=== PATIENT | female | born 1945 | race Caucasian/White ===

== ENCOUNTER 2022-11-26 14:39 | Emergency (ER) | payer MEDICARE, SELFPAY ==
[2022-11-26] VITALS (10 sets, daily range): BP systolic 118–160; BP diastolic 52–78; PULSE 64–72; RESP 18; TEMP 37.3; O2SAT 92–95; BMI 33.8
--- NOTE | 2022-11-26 15:22 | ED.SYNCOPE ---
HPI - Syncope General Chief Complaint: Syncope/Fainted Stated Complaint: Passed out, still lightheaded Time Seen by Provider: 11/26/22 14:55 History of Present Illness HPI narrative: This 77-year-old female comes in for evaluation after a syncopal event that occurred just prior to arrival. She states that she was stooped over then stood up and walked up a hill and when she got to the top of the hill she began to feel lightheaded. As she was planning to get down to prevent falling she did have brief loss of consciousness. She does not report any injury from this event. She did measure her blood pressure soon after this and noted it was 104/49. She states that she feels back to normal now. She does take antihypertensive medications. There is been no recent change in the dosing of these medicines. She did not have any chest pain, nausea, vomiting, or diaphoresis. She states that she has been tired over the past few weeks and has not slept as well at night for various reasons. Related Data Home Medications Medication Instructions Recorded Confirmed atenolol 50 mg-chlorthalidone 25 tab PO 11/26/22 mg tablet atorvastatin 10 mg tablet 10 mg PO DAILY 11/26/22 11/26/22 potassium chloride 20 mEq 20 meq PO DAILY 11/26/22 11/26/22 tablet,extended release(part/cryst) Allergies Allergy/AdvReac Type Severity Reaction Status Date / Time No Known Drug Allergies Allergy Verified 11/26/22 14:45 Review of Systems Status of ROS: Reports: 10 or more systems reviewed and unremarkable except as noted in History and below Narrative: Constitutional: No fevers, no weight gain or loss. Eyes: No discharge. No vision changes. HENT: No congestion, no sore throat, no ear pain. Cardiovascular: No chest pain, no palpitations. Respiratory: No shortness of breath, no wheezes, no cough. Gastrointestinal: No abdominal pain, no vomiting, no diarrhea. Genitourinary: No dysuria, no hematuria. Musculoskeletal: Normal range of motion. Skin: No rashes, no pruritis. Neurological: No weakness, sensory change, speech change. Lightheadedness episode with brief syncope as described above. Endo/Heme/Allergies: No bruising or bleeding. No polydipsia. Pysch: no suicidality, no anxiety, no insomnia. All other systems reviewed and are negative. Exam Narrative: Exam Narrative: Constitutional: Well-developed, well-nourished, no acute distress. HEENT: Normocephalic, atraumatic. Neck: Normal range of motion. Nontender. Supple. Heart: Regular. No murmurs. Normal rate. Intact distal pulses. Lungs: Clear to auscultation. No chest discomfort. No wheezes, rhonchi, or rales. Abdomen: Normal bowel sounds. Nontender. No rebound tenderness. Genitalia: Deferred. Back: No midline tenderness. Normal range of motion. Extremities: Normal range of motion. No injury. No pedal edema. Skin: Intact. No rash. Warm. No erythema or pallor. Neurologic: No altered sensation. No weakness. Alert and oriented. Psychiatric: No suicidality. No anxiety or depression. No insomnia. Nursing notes and vitals signs are reviewed. Const: Vital Signs, click to edit/add: Vital Signs - 24 hr 11/26/22 14:45 11/26/22 15:20 11/26/22 15:30 Temperature 99.2 F Pulse Rate 67 64 Pulse Rate [Right Pulse Oximeter] 72 Respiratory Rate 18 Blood Pressure Blood Pressure [Ri ght Upper Arm] 160/78 H Pulse Oximetry 95 95 92 Oxygen Delivery Me thod Room Air 11/26/22 15:33 11/26/22 15:59 11/26/22 16:00 Temperature Pulse Rate 64 64 Pulse Rate [Right Pulse Oximeter] Respiratory Rate Blood Pressure 136/73 Blood Pressure [Ri ght Upper Arm] Pulse Oximetry 93 94 Oxygen Delivery Me thod 11/26/22 16:03 11/26/22 16:15 Temperature Pulse Rate 64 66 Pulse Rate [Right Pulse Oximeter] Respiratory Rate Blood Pressure 118/52 L Blood Pressure [Ri ght Upper Arm] Pulse Oximetry 93 95 Oxygen Delivery Me thod Course Vital Signs Vital signs: Initial Vital Signs Temperature 99.2 F 11/26/22 14:45 Temperature Source Temporal Artery Scan 11/26/22 14:45 Pulse Rate 72 11/26/22 14:45 Respiratory Rate 18 11/26/22 14:45 Blood Pressure 160/78 H 11/26/22 14:45 Blood Pressure Mean 105 11/26/22 14:45 Blood Pressure Position Sitting 11/26/22 14:45 Pulse Oximetry 95 11/26/22 14:45 Oxygen Delivery Method Room Air 11/26/22 14:45 Vital Signs Temperature 99.2 F 11/26/22 14:45 Pulse Rate 72 11/26/22 14:45 Respiratory Rate 18 11/26/22 14:45 Blood Pressure 160/78 H 11/26/22 14:45 Pulse Oximetry 95 11/26/22 14:45 Oxygen Delivery Method Room Air 11/26/22 14:45 Temperature 99.2 F 11/26/22 14:45 Pulse Rate 66 11/26/22 16:15 Respiratory Rate 18 11/26/22 14:45 Blood Pressure 118/52 L 11/26/22 16:03 Pulse Oximetry 95 11/26/22 16:15 Oxygen Delivery Method Room Air 11/26/22 14:45 MDM - Syncope MDM Narrative Medical decision making narrative: This patient came in for evaluation of a syncopal episode that occurred just prior to arrival. She continues to feel completely normal at this time and throughout her stay here. Her vital signs also are in normal range. EKG shows normal findings as to lab results. Her troponin returns at 0. She is able to get up and ambulate and is not having any symptoms. I did describe various causes that can contribute to such symptoms. She is on 2 antihypertensive medications. I did advise her to check her blood pressures regularly and follow-up with her primary physician. Lab Data Labs: Lab Results 11/26/22 Range/Units 15:39 WBC 10.52 (4.50-11.00) K/uL RBC 4.58 (4.00-5.20) m/uL Hgb 13.7 (12.0-16.0) gm/dL Hct 40.5 (33.0-51.0) % MCV 88 (80-100) fL MCH 30 (26-34) pg MCHC 34 (32-36) gm/dL RDW Coeff of Koffi 12.5 (11.5-15.5) % Plt Count 276 (140-440) K/uL Neut % (Auto) 71.0 (42.0-72.0) % Lymph % (Auto) 19.3 L (20-44) % Ralls % (Auto) 7.7 (0.0-11.0) % Eos % (Auto) 1.4 (0.0-7.0) % Baso % (Auto) 0.3 (0.0-3.0) % Neut # (Auto) 7.47 H (1.7-7.0) K/uL Lymph # (Auto) 2.00 (0.90-2.90) K/uL Ralls # (Auto) 0.80 (0.00-0.90) K/UL Eos # (Auto) 0.15 (0.00-0.50) K/uL Baso # (Auto) 0.03 (0.00-0.30) K/uL Sodium 140 (135-149) mmol/L Potassium 3.9 (3.6-5.1) mmol/L Chloride 105 (96-114) mmol/L Carbon Dioxide 26 (20-32) mmol/L BUN 19 (7-30) mg/dL Creatinine 0.7 (0.5-1.5) mg/dL Estimated Creat Clear 40.68 Estimated GFR 89 ml/min Glucose 114 (60-115) mg/dL Calcium 9.2 (8.4-10.6) mg/dL POC Troponin I 0.00 L (0.01-0.04) ng/ml ECG Data Attestation: I personally reviewed and interpreted this ECG as follows: Interpretation: Normal sinus rhythm. Rate is 69 beats per minute. There are no ST or T-wave abnormalities. Discharge Plan Discharge Clinical Impression: Vasovagal syncope Patient Disposition: Home, Self-Care Condition: Improved Additional Instructions: Continue current plans. Record blood pressures and follow-up with primary physician. Return if symptoms are recurrent or worsening. Prescriptions: No Action atorvastatin 10 mg tablet 10 mg PO DAILY atenolol-chlorthalidone 50-25 mg tablet PO potassium chloride 20 mEq tablet,ER particles/crystals 20 meq PO DAILY Follow Up/Referrals: Kevin Spencer MD [Primary Care Provider] - Stand Alone Forms: [facility] Info Instructions
[2022-11-26 15:48] LABS: Basophils Absolute Auto 0.03 K/uL (0.00-0.30); Basophils Percent Auto 0.3 % (0.0-3.0); Eosinophils Absolute Auto 0.15 K/uL (0.00-0.50); Eosinophils Percent Auto 1.4 % (0.0-7.0); Hematocrit 40.5 % (33.0-51.0); Hemoglobin* 13.7 gm/dL (12.0-16.0); Immature Granulocytes Abs Auto 0.03 K/uL (0.00-0.30); Immature Granulocytes Pct Auto 0.3 %; Lymphocytes Percent Auto 19.3 % (20-44); Mean Corpuscular HGB Conc 34 gm/dL (32-36); Mean Corpuscular Hemoglobin 30 pg (26-34); Mean Corpuscular Volume 88 fL (80-100); Monocytes Percent Auto 7.7 % (0.0-11.0); Neutrophils Absolute Auto 7.47 K/uL (1.7-7.0); Platelet Count* 276 K/uL (140-440); RDW Coefficient of Variation % 12.5 % (11.5-15.5); Red Blood Count 4.58 m/uL (4.00-5.20); White Blood Count* 10.52 K/uL (4.50-11.00)
[2022-11-26 15:52] LABS: Slide Review Reflex No
[2022-11-26 16:04] LABS: Chloride* 105 mmol/L (96-114)
[2022-11-26 16:05] LABS: Potassium* 3.9 mmol/L (3.6-5.1); Sodium* 140 mmol/L (135-149)
[2022-11-26 16:07] LABS: Creatinine* 0.7 mg/dL (0.5-1.5); Est. Creatinine Clearance* 40.68; Estimated Glomerular Filt Rate 89 ml/min
[2022-11-26 16:08] LABS: Blood Urea Nitrogen* 19 mg/dL (7-30); Calcium* 9.2 mg/dL (8.4-10.6); Carbon Dioxide* 26 mmol/L (20-32); Glucose* 114 mg/dL (60-115)
== END 2022-11-26 16:57 | disposition home or self-care (01) ==
PROVIDERS: Emergency Provider Emergency Medicine Emergency Medical Services; PCP Family Medicine
DX: R55 Syncope and collapse (principal)
CPT/HCPCS: 36415; 80048; 84484; 85025; 93005; 99284

== ENCOUNTER 2023-05-16 11:36 | Emergency (ER) | payer MEDICARE, SELFPAY ==
[2023-05-16] VITALS (10 sets, daily range): BP systolic 134–172; BP diastolic 57–101; PULSE 35–42; RESP 12–30; TEMP 36.6; O2SAT 90–96; BMI 33.3
--- NOTE | 2023-05-16 14:56 | ED.GENADULT ---
HPI - General Adult General Time Seen by Provider: 14:56 Date Seen: 05/16/23 Chief complaint: Arrhythmia/Palpitations Stated complaint: Low heartrate Time Seen by Provider: 05/16/23 14:44 Source: patient and RN notes reviewed Mode of arrival: ambulatory Limitations: no limitations History of Present Illness HPI narrative: Patient is a 77-year-old female sent in from [facility] where she was supposed to have a colonoscopy today. She was found have a low heart rate in the 40s. She is on atenolol, chlorthalidone, takes it at night. She is having no chest pain, no shortness of breath, no exercise intolerance, no edema. She did not take her potassium due to not eating, normally takes it with food. She does water aerobics 3 times a week. She is not known her heart rate to be low. She is not symptomatic with this. She is just hungry after having completed her colonoscopy prep overnight. Related Data Home Medications Medication Instructions Recorded Confirmed atenolol 50 mg-chlorthalidone 25 tab PO 11/26/22 mg tablet atorvastatin 10 mg tablet 10 mg PO DAILY 11/26/22 11/26/22 potassium chloride 20 mEq 20 meq PO DAILY 11/26/22 11/26/22 tablet,extended release(part/cryst) Allergies Allergy/AdvReac Type Severity Reaction Status Date / Time No Known Drug Allergies Allergy Verified 11/26/22 14:45 Review of Systems Status of ROS: Reports: 6 or more systems reviewed and unremarkable except as noted in History and below PFSH PFSH Social History Smoking Status: Never smoker Do you use any of these nicotine containing products: None How often do you have a drink containing alcohol: never AUDIT-C Alcohol total score: 0 Non-prescribed substance use: denies use Exam Const: Vital Signs, click to edit/add: Vital Signs - 24 hr 05/16/23 11:45 05/16/23 15:09 Temperature 97.8 F Pulse Rate [Right Pulse Oximeter] 42 L Respiratory Rate 18 Blood Pressure [Ri ght Upper Arm] 172/70 H Pulse Oximetry 96 94 Oxygen Delivery Me thod Room Air This is a 77-year-old female that is alert, interactive, no apparent distress. Sclera clear, face atraumatic, speech normal. Neck is supple, no jugular venous distension, no cervical adenopathy, no thyromegaly masses or nodules. She sits up easily, lungs are clear, no wheezing or crackles, no tachypnea. CV slow but regular, no murmur heard, normal S1 and S2 noted. Abdomen is soft, no rebound, no organomegaly, nontender, no masses. She has no lower extremity edema. Patient ambulatory in the ED of her own accord. Documenting provider has reviewed patient's vital signs: yes Course Course ED Course: Reviewed with patient that this is likely resulting from her atenolol. It very well may be that she is developing underlying sinus conduction system disease. We will check appropriate labs including troponin, TSH and electrolytes. Will get a portable chest x-ray. Will talk to Cardiology regarding this case. It may be that she is recommended to stay in the hospital for observation. Will have her on cardiac monitoring, pulse oximetry and get an EKG. Consultations Consultation #1: Spoke with [facility], Dr. Qiu. Sent him the EKG, he agrees it is a Mobitz 2. He states she needs to come for pacemaker with this heart block. Time: 15:50 Vital Signs Vital signs: Initial Vital Signs Temperature 97.8 F 05/16/23 11:45 Temperature Source Temporal Artery Scan 05/16/23 11:45 Pulse Rate 42 L 05/16/23 11:45 Respiratory Rate 18 05/16/23 11:45 Blood Pressure 172/70 H 05/16/23 11:45 Blood Pressure Mean 104 05/16/23 11:45 Pulse Oximetry 96 05/16/23 11:45 Oxygen Delivery Method Room Air 05/16/23 11:45 Vital Signs Temperature 97.8 F 05/16/23 11:45 Pulse Rate 42 L 05/16/23 11:45 Respiratory Rate 18 05/16/23 11:45 Blood Pressure 172/70 H 05/16/23 11:45 Pulse Oximetry 96 05/16/23 11:45 Oxygen Delivery Method Room Air 05/16/23 11:45 Temperature 97.8 F 05/16/23 11:45 Pulse Rate 35 L 05/16/23 18:30 Respiratory Rate 29 H 05/16/23 18:30 Blood Pressure 149/73 H 05/16/23 18:30 Pulse Oximetry 94 05/16/23 18:30 Oxygen Delivery Method Room Air 05/16/23 18:30 Medical Decision Making Lab Data Lab results reviewed: Yes I reviewed the patient's lab results Labs: Lab Results 05/16/23 Range/Units 15:15 WBC 10.47 (4.50-11.00) K/uL RBC 5.00 (4.00-5.20) m/uL Hgb 14.6 (12.0-16.0) gm/dL Hct 43.8 (33.0-51.0) % MCV 88 (80-100) fL MCH 29 (26-34) pg MCHC 33 (32-36) gm/dL RDW Coeff of Koffi 12.3 (11.5-15.5) % Plt Count 265 (140-440) K/uL Neut % (Auto) 65.4 (42.0-72.0) % Lymph % (Auto) 24.3 (20-44) % Pope % (Auto) 8.7 (0.0-11.0) % Eos % (Auto) 1.1 (0.0-7.0) % Baso % (Auto) 0.3 (0.0-3.0) % Neut # (Auto) 6.85 (1.7-7.0) K/uL Lymph # (Auto) 2.54 (0.90-2.90) K/uL Pope # (Auto) 0.90 (0.00-0.90) K/UL Eos # (Auto) 0.12 (0.00-0.50) K/uL Baso # (Auto) 0.03 (0.00-0.30) K/uL Abs Immat Gran (auto) 0.02 (0.00-0.30) K/uL Imm/Tot Granulo (auto) 0.2 % Sodium 139 (135-149) mmol/L Potassium 4.1 (3.6-5.1) mmol/L Chloride 100 (96-114) mmol/L Carbon Dioxide 26 (20-32) mmol/L Anion Gap 13 (7-15) mEq/L BUN 15 (7-30) mg/dL Creatinine 0.6 (0.5-1.5) mg/dL Estimated Creat Clear 42.39 Estimated GFR 92 ml/min Glucose 88 (60-115) mg/dL Calcium 9.6 (8.4-10.6) mg/dL Magnesium 2.1 (1.5-2.6) mg/dL Total Bilirubin 1.5 (0.1-1.5) mg/dL AST 57 H (12-35) U/L ALT 39 H (4-35) U/L Alkaline Phosphatase 106 (40-150) U/L Troponin I < 0.01 L (0.01-0.04) ng/mL NT-Pro-B Natriuret Pep 550 pg/mL Total Protein 8.4 H (6.0-8.3) g/dL Albumin 4.9 (3.3-5.0) g/dL TSH 1.570 (0.270-4.200) uIU/mL ECG Data Attestation: I personally reviewed and interpreted this ECG as follows: (Sinus bradycardia, 35 beats per minute. Looks to be a second-degree AV block, likely Mobitz 2.) Discharge Plan Discharge Clinical Impression: Atrioventricular block, Mobitz type 2 Patient Disposition: Xfer [facility] Discharge Location: [facility] Condition: Unchanged Prescriptions: No Action atorvastatin 10 mg tablet 10 mg PO DAILY atenolol-chlorthalidone 50-25 mg tablet PO potassium chloride 20 mEq tablet,ER particles/crystals 20 meq PO DAILY Stand Alone Forms: [facility] Info Instructions
--- NOTE | 2023-05-16 15:09 | CRLHL7_ITS ---
For Patients: As a result of the Cures Act, medical imaging exams and procedure reports are released immediately into your electronic medical record. You may view this report before your referring provider. If you have questions, please contact your health care provider. INDICATION: Bradycardia. TECHNIQUE: Chest 1 view. COMPARISON: Chest radiograph 09/15/2020. FINDINGS: No focal consolidation, pleural effusion, or pneumothorax. Left basilar atelectasis or scarring similar to prior exam. Mild cardiomegaly. Normal pulmonary vascularity. Degenerative changes of the shoulders. IMPRESSION: 1. No acute cardiopulmonary findings. 2. Mild cardiomegaly. Dictated by Jaida Mccall MD @ 05/16/2023 3:58:36 PM (Electronically Signed)
[2023-05-16 15:39] LABS: Basophils Absolute Auto 0.03 K/uL (0.00-0.30); Basophils Percent Auto 0.3 % (0.0-3.0); Eosinophils Absolute Auto 0.12 K/uL (0.00-0.50); Eosinophils Percent Auto 1.1 % (0.0-7.0); Hematocrit 43.8 % (33.0-51.0); Hemoglobin* 14.6 gm/dL (12.0-16.0); Immature Granulocytes Abs Auto 0.02 K/uL (0.00-0.30); Immature Granulocytes Pct Auto 0.2 %; Lymphocytes Absolute Auto 2.54 K/uL (0.90-2.90); Lymphocytes Percent Auto 24.3 % (20-44); Mean Corpuscular HGB Conc 33 gm/dL (32-36); Mean Corpuscular Hemoglobin 29 pg (26-34); Mean Corpuscular Volume 88 fL (80-100); Monocytes Percent Auto 8.7 % (0.0-11.0); Neutrophils Absolute Auto 6.85 K/uL (1.7-7.0); Neutrophils Percent Auto 65.4 % (42.0-72.0); Platelet Count* 265 K/uL (140-440); RDW Coefficient of Variation % 12.3 % (11.5-15.5); White Blood Count* 10.47 K/uL (4.50-11.00)
[2023-05-16 15:42] LABS: Slide Review Reflex No
[2023-05-16] MEDS: 0.9 % SODIUM CHLORIDE 1000 ml 1,000 ML 500 ML IV (15:49)
[2023-05-16 16:25] LABS: Albumin* 4.9 g/dL (3.3-5.0); Chloride* 100 mmol/L (96-114); Sodium* 139 mmol/L (135-149)
[2023-05-16 16:26] LABS: Potassium* 4.1 mmol/L (3.6-5.1)
[2023-05-16 16:27] LABS: Creatinine* 0.6 mg/dL (0.5-1.5); Est. Creatinine Clearance* 42.39; Estimated Glomerular Filt Rate 92 ml/min
[2023-05-16 16:28] LABS: Alanine Aminotransferase* 39 U/L (4-35); Alkaline Phosphatase* 106 U/L (40-150); Anion Gap 13 mEq/L (7-15); Aspartate Amino Transferase* 57 U/L (12-35); Bilirubin Total* 1.5 mg/dL (0.1-1.5); Blood Urea Nitrogen* 15 mg/dL (7-30); Carbon Dioxide* 26 mmol/L (20-32); Glucose* 88 mg/dL (60-115); Total Protein* 8.4 g/dL (6.0-8.3)
[2023-05-16 16:29] LABS: Calcium* 9.6 mg/dL (8.4-10.6); Magnesium* 2.1 mg/dL (1.5-2.6)
--- NOTE | 2023-05-16 16:41 | ED.NURSE ---
given report to Madeleine Lorenz at [facility]. plan to go to [id number]
[2023-05-16 16:42] LABS: NT Pro B Type NatriureticPept* 550 pg/mL; Troponin I* < 0.01 ng/mL (0.01-0.04)
--- NOTE | 2023-05-16 17:19 | ED.NURSE ---
called dispatch to put in the que for transfer to [facility]. possibly an hour
--- NOTE | 2023-05-16 18:15 | ED.NURSE ---
patient is feeling fine denies chest pain continue to watch patient on the monitor and hr 38
--- NOTE | 2023-05-16 18:57 | ED.NURSE ---
EMS is here to transport patient to [facility] and given report to staff
== END 2023-05-16 19:07 | disposition short-term general hospital (02) ==
PROVIDERS: Emergency Provider Family Medicine; PCP Family Medicine
DX: I44.1 Atrioventricular block, second degree (principal); R06.00 Dyspnea, unspecified
CPT/HCPCS: 36415; 71045; 80053; 83735; 83880; 84443; 84484; 85025; 93005; 94761; 96360; 96361; 99284; 99285; J7030

== ENCOUNTER 2023-05-16 18:55 | Outpatient (CLI) | payer MEDICARE, SELFPAY | END 2023-05-16 18:56 | disposition home or self-care (01) | LOC: AMB 05-21 14:55 | PROVIDERS: PCP Family Medicine; Visit Provider Emergency Medicine | DX: R00.1 Bradycardia, unspecified (principal); R53.1 Weakness | CPT/HCPCS: A0425; A0427 ==

== ENCOUNTER 2023-09-09 06:29 | Outpatient (CLI) | payer MEDICARE, SELFPAY ==
--- NOTE | 2023-09-09 07:43 | W.ANESCHARGE ---
Anesthesia Charges Start Date/Time Anesthesia Start Date: 09/09/23 Anesthesia Start Time: 07:17 Stop Date/Time Anesthesia Stop Date: 09/09/23 Anesthesia Stop Time: 07:40 Summary Extremes of Age - Over 70 or under 1: MDA
--- NOTE | 2023-09-09 08:29 | W.ANESCHARGE ---
Anesthesia Charges Start Date/Time Anesthesia Start Date: 09/09/23 Anesthesia Start Time: 07:17 Stop Date/Time Anesthesia Stop Date: 09/09/23 Anesthesia Stop Time: 07:40
== END 2023-09-09 06:30 | disposition home or self-care (01) ==
LOC: OP CLINIC 06:30
PROVIDERS: PCP Family Medicine; Visit Provider Internal Medicine Gastroenterology
DX: Z12.11 Encounter for screening for malignant neoplasm of colon (principal); K63.5 Polyp of colon; K57.30 Diverticulosis of large intestine without perforation or abscess without bleeding; K64.8 Other hemorrhoids; Z86.010 Personal history of colon polyps
CPT/HCPCS: 00811; 45385; 88305; 99100; J2704

== ENCOUNTER 2024-02-19 05:00 | Emergency (ER) | payer MEDICARE, SELFPAY ==
[2024-02-19 05:06] VITALS: BP 161/84; PULSE 65; RESP 18; TEMP 36.7; O2SAT 99; BMI 33.3
--- NOTE | 2024-02-19 05:36 | ED.WOUNDLAC ---
HPI - Wound/Laceration General Date Seen: 02/19/24 Chief Complaint: Laceration/Wound Stated Complaint: Cut foot, fell out of bed Time Seen by Provider: 02/19/24 05:29 Source: patient Mode of arrival: ambulatory Limitations: no limitations History of Present Illness HPI narrative: Patient is a 78-year-old female brought in by friend at approximately 5:00 a.m. with a laceration her to her left foot. She fell out of bed and believes that she cut her foot on a dresser. Bleeding was profuse. Tetanus is up-to-date. She presents for evaluation for suturing. Related Data Home Medications ?Medication ?Instructions ?Recorded ?Confirmed atenolol 50 mg-chlorthalidone 25 1 tab PO DIRECTED 11/26/22 02/19/24 mg tablet atorvastatin 10 mg tablet 10 mg PO DAILY 11/26/22 02/19/24 potassium chloride 20 mEq 20 meq PO DAILY 11/26/22 02/19/24 tablet,extended release(part/cryst) Allergies Allergy/AdvReac Type Severity Reaction Status Date / Time No Known Drug Allergies Allergy Verified 02/19/24 05:09 Review of Systems Narrative: Review of systems is outlined above otherwise noted to be negative. PFSH PFSH Social History Smoking Status: Never smoker Do you use any of these nicotine containing products: None How often do you have a drink containing alcohol: never AUDIT-C Alcohol total score: 0 Non-prescribed substance use: denies use Exam Narrative: Exam Narrative: Vitals noted. She has small flap of tissue missing from her left great toe. She has a 4 cm laceration on the sole of the foot mainly overlying the 1st MCP. No tendon involvement. There is a portion of laceration that is a thin flap cannot be sutured. The remainder of the wound for he is deep and bleeding profusely. Range of motion is full. Distal sensation is normal. Const: Vital Signs, click to edit/add: Vital Signs - 24 hr 02/19/24 05:06 Temperature 98.0 F Pulse Rate [Right Pulse Oximeter] 65 Respiratory Rate 18 Blood Pressure [Ri ght Upper Arm] 161/84 H Pulse Oximetry 99 Oxygen Delivery Me thod Room Air Course Course ED Course: 4 mL of 1% lidocaine with epinephrine is used for local anesthesia. Wound is prepped and draped in sterile fashion, scrubbed with a Hibiclens solution, and closed with eight simple interrupted sutures of 4-0 Ethilon. Good wound edge approximation and hemostasis are achieved. It is dressed with bacitracin and Telfa. She tolerated this well. Vital Signs Vital signs: Initial Vital Signs Temperature 98.0 F 02/19/24 05:06 Temperature Source Temporal Artery Scan 02/19/24 05:06 Pulse Rate 65 02/19/24 05:06 Respiratory Rate 18 02/19/24 05:06 Blood Pressure 161/84 H 02/19/24 05:06 Blood Pressure Mean 109 H 02/19/24 05:06 Blood Pressure Position Sitting 02/19/24 05:06 Pulse Oximetry 99 02/19/24 05:06 Oxygen Delivery Method Room Air 02/19/24 05:06 Vital Signs Temperature 98.0 F 02/19/24 05:06 Pulse Rate 65 02/19/24 05:06 Respiratory Rate 18 02/19/24 05:06 Blood Pressure 161/84 H 02/19/24 05:06 Pulse Oximetry 99 02/19/24 05:06 Oxygen Delivery Method Room Air 02/19/24 05:06 Temperature 98.0 F 02/19/24 05:06 Pulse Rate 65 02/19/24 05:06 Respiratory Rate 18 02/19/24 05:06 Blood Pressure 161/84 H 02/19/24 05:06 Pulse Oximetry 99 02/19/24 05:06 Oxygen Delivery Method Room Air 02/19/24 05:06 Discharge Plan Discharge Clinical Impression: Foot laceration Patient Disposition: Home, Self-Care Condition: Improved Additional Instructions: Elevate. Keep wound clean, dry, protected. Topical antibiotic daily. Sutures out in 10 days. Watch for signs of infection. Prescriptions: No Action atorvastatin 10 mg tablet 10 mg PO DAILY atenolol-chlorthalidone 50-25 mg tablet 1 tab PO DIRECTED potassium chloride 20 mEq tablet,ER particles/crystals 20 meq PO DAILY Follow Up/Referrals: Kevin Spencer MD [Primary Care Provider] - Stand Alone Forms: [facility] Info Instructions
--- OUTSIDE RECORDS SUMMARY | 2024-02-19 05:44 | XMS_ITS | Clinical Summary ---
Author Organization [facility] Address [place], [place] [address] Care Team Providers Care Compensation Consultant Name Role Phone Kevin Spencer MD Primary Care Provider [phone] Brett Alvarado Unavailable [phone] Josiah Decker MD Unavailable [phone] Allergies No known active allergies Medications Medication Sig Dispensed Refills Start Date End Date Status Cholecalciferol, Vitamin D3, (VITAMIN D-3) 5,000 unit tab Take by mouth once daily. 0 01/14/2017 Active atenolol-chlorthalidon e, 50-25 mg, (TENORETIC 50) 50-25 mg tabletIndications:Paro xysmal SVT (supraventricular tachycardia) (HC),HTN (hypertension) Take 0.5 Tablets by mouth once daily. 90 Tablet 3 07/19/2023 Active atorvastatin (LIPITOR) 10 mg tabletIndications:Mixe d hyperlipidemia Take 1 Tablet (10 mg) by mouth once daily. 90 Tablet 3 07/19/2023 Active potassium chloride (KLOR-CON M20) 20 mEq extended-release tablet (part/cryst)Indication s:Essential hypertension,Hypokalem ia Take 1 Tablet (20 mEq) by mouth once daily with a meal. 90 Tablet 3 07/19/2023 Active polyethylene glycol-electrolyte (GOLYTELY) 236-22.74-6.74 -5.86 gram suspensionIndications: Encounter for screening colonoscopy Drink 2 liters the day before the procedure and 2 liters 6 hours prior to procedure. 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 Mobitz Type II Vasovagal syncope 05/16/2023 HTN (hypertension) 10/15/2016 Osteoarthritis of both knees 10/15/2016 Hyperlipidemia 10/03/2015 Anterolisthesis - Grade I L5-S1 07/01/2015 Arthritis of right knee 07/05/2014 Paroxysmal SVT (supraventricular tachycardia) Vitamin D deficiency 04/24/2013 Adenomatous colon polyp 12/22/2012 Overview: Colonoscopy 11/2012 polyps repeat in 5 years Colonoscopy 08/2023 TA, repeat in 5 years Immunizations Name Administration Dates Next Due COVID-19 Vaccine Spikevax (M oderna 50mcg/0.5mL) 12YO+ [id number] Formula PF 05/02/2023 COVID-19 vaccine (Moderna 10 0mcg/0.5mL) PF, MDV 10/24/2021 COVID-19 vaccine ([employer] NTech 30mcg/0.3mL) 12YO+ BIVALENT PF, MDV 04/16/2022 COVID-19 vaccine ([employer] NTech 30mcg/0.3mL) PF, MDV 05/03/2021,09/27/2020,09/06/2020 HepA-HepB (Twinrix) 02/16/2010,09/16/2009,2009 Influenza A (H1N1), Inactiva teresa (Age >=3 Years) 08/17/2009 Influenza, High-dose Inactivated 04/21/2018,03/23,04/17/2016 Influenza, High-dose Quadriv alent Inactivated 03/30/2021,04/11/2020 Influenza, IIV4 03/30/2014 Influenza, Inactivated AIIV4 (Age 65+ Years) Preserv Free 04/02/2023,04/16/2022 Pneumococcal Poly,23-Valent (Pneumovax) 04/17/20 13 Pneumococcal conj 13-Valent (Prevnar 13) 014 RSV, Recombinant ADJ Reconst ituted (Arexvy 120MCG/0.5mL) 05/06/2023 Td (Age >=7 Years) 09/10/2003,06/02/2003 Tdap 04/02/2023,11/19/2012 Zoster (Shingrix-RZV, recombinant) 06/08/2020, Family History Medical History Relation Name Comments Other Brother Colon polyps; l umbar spinal fusion Other Daughter Fatemeh Cervical Spinal fusion Heart Disease Father at ag e 81 of MS; valvular heart disease at 70 resulted in CHF Other Mother at age 76 from ALS Cancer-breast Other Niece Arthritis Sister Knees w 1 knee replacement Colon polyps Sister Relation Name Status Comments Brother Alive Daughter Fatemeh Alive Father Mother Other Sister Alive Social History Tobacco Use Types Packs/Day Years Used Date Smoking Tobacco: Never Passive Smoke Exposure: Past Smokeless Tobacco: Never Tobacco Cessation:Counseling Given: Not Answered Alcohol Use Standard Drinks/Week Comments Not Currently 0 (1 standard drink = 0.6 oz pure alcohol) once in a while; 1-2 drinks per month or less PHQ-2 Answer Date Recorded PHQ-2 TOTAL SCORE 0 07/19/2023 Social Connections Answer Date Recorded Frequency of Communication with Friends and Fami ly 0 2022 Alcohol Use Answer Date Recorded How often do you have a drink containing alcohol ? 1 07/19/2023 How many drinks containing a lcohol do you have on a typical day when you are drinking? 0 07/19/2023 How often do you have five or more drinks on one occasion? 0 07/19/2023 Financial Resource Strain Answer Date R ecorded Difficulty of Paying Living Expenses 3 2022 Difficulty of Paying Living Expenses Not on file 2022 Food Insecurity Answer Date Recorded Worried About Running Out of Food in the Last Ye ar 1 2022 Transportation Needs Answer Date Record ed Lack of Transportation (Medical) 1 2022 Housing Stability Answer Date Recorded Unable to Pay for Housing in the Last Year 1 2022 Sex and Gender Information Value Date Recorded Sex Assigned at Not on file Gender Identity Not on file Sexual Orientation Not on file Obstetrics History Last Filed Vital Signs Vital Sign Reading Time Taken Comments Blood Pressure 129/81 09/04/2023 8:49 AM LIFE SCIENCES MANAGER Pulse 64 09/04/2023 8:49 AM LIFE SCIENCES MANAGER Temperature 36.7 ??C (98.1 ??F) 09/04/2023 8:49 AM CS T Respiratory Rate 16 05/19/2023 8:01 AM CDT Oxygen Saturation 96% 09/04/2023 8:49 AM LIFE SCIENCES MANAGER Inhaled Oxygen Concentration - - Weight 89.8 kg (197 lb 14.4 oz) 09/04/2023 8:49 AM LIFE SCIENCES MANAGER Height 164.5 cm (5' 4.76) 09/04/2023 8:49 AM CS T Body Mass Index 33.17 09/04/2023 8:49 AM LIFE SCIENCES MANAGER Plan of Treatment Upcoming Encounters Date Type Department Care Team (Late st Contact Info) Description 05/06/2024 Cardiac Device Check Pulse [facility] [phone] Health Maintenance Due Date Last Done Comments COVID-19 vaccine series ( season) 2023 05/02/2023, 04/16/2022, 10/24/2021, Additional history exists Influenza for age 65+ 03/22/2024 04/02/2023 , 04/16/2022, 03/30/2021, Additional history exists Depression screening for age 12+ 07/19/2024 07/19/2023, 05/24/2023, 2022, Additional history exists Medicare Wellness for age 65+ 07/19/2024, 2022, 07/10/2021, Additional history exists BMI (ht and wt on same day) for age 18+ 09/04/2024 09/04/2023, 07/19/2023, 2022, Additional history exists Tetanus booster 04/02/2033 04/02/2023, 05/0 07/2012, 09/10/2003, Additional history exists Pneumococcal series for age 65+ Completed 4, 04/17/2013 DEXA/DXA scan for age 65+ Completed 01/14/2018 Hepatitis C screening for ag e 18-79 Completed 03/21/2020 Zoster (shingles) series for age 50+ Completed 06/08/2020, 05/04/2020 Tdap Completed 04/02/2023, 11/19/2012 Procedures Procedure Name Priority Date/Time Associated Diagnosis Comments ANTI HCV Routine 03/21/2020 11:45 AM CDT Need for hepatitis C screening test XR DXA BONE DENSITY 2 SITES AXIAL Routine 01/14/2018 10:07 AM CDT Post-menopause from Last 3 Months or Most Recently Relevant to Health Maintenance Results * ANTI HCV (03/21/2020 11:45 AM CDT) HEPATITIS C ANTIBODY Non-React brendan Non-React brendan 03/21/2020 5:[address] [facility] Comment:Antibodies to HCV no t detected; does not exclude the possibility of exposure to HCV. Blood BLOOD SPECIMEN / Unknown Venipuncture / Unknown 03/21/2020 11:45 AM CDT 03/21/2020 11:48 AM CDT Kevin Spencer MD [facility] [address] [place] [address], * XR DXA BONE DENSITY 2 SITES AXIAL (01/14/2018 10:07 AM CDT) Anatomical Region Laterality Modality Spine, HIPS, HIPL, HIPR Other Narrative 01/14/2018 6:00 PM CDT Please see scanned document for results of this study. Kevin Spencer MD DEXA from Last 3 Months or Most Recently Relevant to Health Maintenance Advance Directives * Full Code (Latest Code Status on File) Date Activated Date Inactivated Comments 05/16/2023 8:21 PM 05/19/2023 1:50 PM Question Answer Comments Code Status Discussion: Reviewed Preferences Care Teams Compensation Consultant Relationship Specialty Start Date End Date Kevin Spencer MD [address] [place] [address] PCP - General 02/11/06 Brett Alvarado [address] [place] [id number] Dust Puller 07/05/14 Josiah Decker MD [address] [place] [address] Internal Medicine 07/05/14
[2024-02-19 06:17] VITALS: BP 154/74; PULSE 62; RESP 18; TEMP 36.7; O2SAT 99
[2024-02-19 06:18] VITALS: BP 154/74; PULSE 62; RESP 18; TEMP 36.7
== END 2024-02-19 06:19 | disposition home or self-care (01) ==
PROVIDERS: Emergency Provider Family Medicine; PCP Family Medicine
DX: S91.312A Laceration without foreign body, left foot, initial encounter (principal); W06.XXXA Fall from bed, initial encounter
CPT/HCPCS: 12001; 12020; 99282; 99283